=== PATIENT | male | born 1995 | race Caucasian/White ===

== ENCOUNTER 2019-12-03 21:50 | Emergency (ER) | payer MEDICAID ==
[~2019-12-03] VITALS: Ht 182.9 cm; Wt 108.2 kg
[2019-12-03 21:53] VITALS: BP 152/75
[2019-12-03] MEDS ORDERED: ALPR0.255 PO (22:14)
== END 2019-12-03 23:11 | disposition left against medical advice (07) ==
LOC: EMS 21:51
DX: Z11.59 Encounter for screening for other viral diseases (principal); Z53.21 Procedure and treatment not carried out due to patient leaving prior to being seen by health care provider